=== PATIENT | female | born 1955 | race American Indian/Alaskan Native ===

== ENCOUNTER 2020-11-01 09:19 | Emergency (ER) | payer MEDICAID ==
--- NOTE | 2020-11-01 09:52 | Emergency Department Report ---
ED General Adult HPI - General Chief complaint: Chest Pain Stated complaint: CHEST PAIN Time Seen by Provider: 11/01/20 09:48 Source: EMS Mode of arrival: Stretcher Limitations: Physical Limitation - History of Present Illness Initial comments: Patient is a 65-year-old female who presents emergency department for evaluation of chest pain earlier this morning which has since resolved. Patient denies shortness of breath, denies pleuritic symptoms, denies fever, denies cough. Patient denies calf pain or swelling. Patient denies abdominal pain, denies nausea vomiting or diarrhea. Severity scale (0 -10): 10 - Related Data Home Medications Medication Instructions Recorded Confirmed Last Taken Acetaminophen [Acetaminophen TAB] 325 mg PO Q6HR 12/23/17 12/23/17 Unknown Baclofen 15 mg PO TID 12/23/17 12/23/17 Unknown Docusate Sodium [Colace CAP] 100 mg PO BID PRN 12/23/17 12/23/17 Unknown Famotidine 40 mg PO QHS 12/23/17 12/23/17 Unknown Fluticasone Propionate [Flovent 50 mcg IH DAILY 12/23/17 12/23/17 Unknown Diskus] Loratadine (Nf) [Claritin (Nf)] 10 mg PO DAILY 12/23/17 12/23/17 Unknown Melatonin/Pyridoxine [Melatonin 5 5 mg PO QHS 12/23/17 12/23/17 Unknown mg Tablet] Montelukast [Singulair] 10 mg PO QPM 12/23/17 12/23/17 Unknown Sennosides [Senna Lax] 8.6 mg PO DAILY 12/23/17 12/23/17 Unknown guaiFENesin DM [Guaifenesin Dm 10 ml PO Q6HR 12/23/17 12/23/17 Unknown Syrup] traMADoL [Ultram 50 MG tab] 50 mg PO Q8HR 12/23/17 12/23/17 Unknown Previous Rx's Medication Instructions Recorded Last Taken Type levoFLOXacin [Levaquin TAB] 500 mg PO QDAY #5 tablet 12/27/17 Unknown Rx polyethylene glycoL 3350 [Miralax 17 gm PO QDAY PRN #7 powd.pack 12/27/17 Unknown Rx 3350] Allergies Allergy/AdvReac Type Severity Reaction Status Date / Time No Known Allergies Allergy Unverified 12/23/17 04:18 ED Review of Systems ROS: Stated complaint: CHEST PAIN Other details as noted in HPI Comment: All other systems reviewed and negative ED Past Medical Hx - Past Medical History Hx Hypertension: Yes Additional medical history: cerebral palsy, myelopathy, contracture, dysphagia - Surgical History Additional Surgical History: laminectomy - Social History Smoking Status: Unknown if ever smoked - Medications Home Medications: Home Medications Medication Instructions Recorded Confirmed Last Taken Type Acetaminophen [Acetaminophen TAB] 325 mg PO Q6HR 12/23/17 12/23/17 Unknown History Baclofen 15 mg PO TID 12/23/17 12/23/17 Unknown History Docusate Sodium [Colace CAP] 100 mg PO BID PRN 12/23/17 12/23/17 Unknown History Famotidine 40 mg PO QHS 12/23/17 12/23/17 Unknown History Fluticasone Propionate [Flovent 50 mcg IH DAILY 12/23/17 12/23/17 Unknown History Diskus] Loratadine (Nf) [Claritin (Nf)] 10 mg PO DAILY 12/23/17 12/23/17 Unknown History Melatonin/Pyridoxine [Melatonin 5 5 mg PO QHS 12/23/17 12/23/17 Unknown History mg Tablet] Montelukast [Singulair] 10 mg PO QPM 12/23/17 12/23/17 Unknown History Sennosides [Senna Lax] 8.6 mg PO DAILY 12/23/17 12/23/17 Unknown History guaiFENesin DM [Guaifenesin Dm 10 ml PO Q6HR 12/23/17 12/23/17 Unknown History Syrup] traMADoL [Ultram 50 MG tab] 50 mg PO Q8HR 12/23/17 12/23/17 Unknown History levoFLOXacin [Levaquin TAB] 500 mg PO QDAY #5 tablet 12/27/17 Unknown Rx polyethylene glycoL 3350 [Miralax 17 gm PO QDAY PRN #7 powd.pack 12/27/17 Unknown Rx 3350] ED Physical Exam - General Limitations: Physical Limitation General appearance: alert, in no apparent distress - Head Head exam: Present: atraumatic, normocephalic - Eye Eye exam: Present: normal appearance - ENT ENT exam: Present: mucous membranes moist - Neck Neck exam: Present: normal inspection - Respiratory Respiratory exam: Present: normal lung sounds bilaterally. Absent: respiratory distress - Cardiovascular Cardiovascular Exam: Present: regular rate, normal rhythm - GI/Abdominal GI/Abdominal exam: Present: soft, normal bowel sounds - Extremities Exam Extremities exam: Present: normal inspection, other (Contractures of extremities at baseline) - Back Exam Back exam: Present: normal inspection - Neurological Exam Neurological exam: Present: alert, oriented X3 - Psychiatric Psychiatric exam: Present: normal affect, normal mood - Skin Skin exam: Present: warm, dry, intact, normal color. Absent: rash ED Course Vital Signs 11/01/20 11/01/20 11/01/20 09:35 10:00 10:07 Temperature 98.0 F Pulse Rate 100 H 84 Respiratory 20 18 18 Rate Blood Pressure 212/110 164/84 [Right] O2 Sat by Pulse 97 97 Oximetry - Reevaluation(s) Reevaluation #1: 11/01/20 15:11 IV access established by me to left upper arm using ultrasound guidance secondary to difficult placement from extremity contractures. Immediately prior to CTA chest, IV line extravasates. IV consequently discontinued. Patient refuses any further attempts at IV placement. Patient repeatedly states she did her symptoms this morning were attributable to high blood pressure, symptoms do correlate with blood pressure values in emergency department. Patient has no c linical evidence of DVT, nor PE, has a normal pulse, oxygen saturation 100% on room air with normal respiratory rate, patient has denied chest pain since arrival to emergency department, remains asymptomatic, has no obvious inherent risk factors for DVT and/or PE. Patient discharged. 11/01/20 15:12 ED Medical Decision Making - Lab Data Result diagrams: 11/01/20 10:27 11/01/20 10:27 Labs 11/01/20 11/01/20 11/01/20 10:27 10:27 10:27 WBC 4.9 RBC 4.18 Hgb 12.8 Hct 38.6 MCV 92 MCH 31 MCHC 33 RDW 13.9 Plt Count 267 Lymph % (Auto) 40.8 H [place] % (Auto) 6.7 Eos % (Auto) 3.5 Baso % (Auto) 1.0 Lymph # (Auto) 2.0 [place] # (Auto) 0.3 Eos # (Auto) 0.2 Baso # (Auto) 0.0 Seg Neutrophils % 48.0 Seg Neutrophils # 2.3 D-Dimer 477.58 H Sodium 138 Potassium 3.9 Chloride 103.7 Carbon Dioxide 26 Anion Gap 12 BUN 11 Creatinine 0.6 Estimated GFR > 60 BUN/Creatinine Ratio 18 Glucose 104 H Calcium 9.4 Total Bilirubin 0.30 AST 14 ALT 12 Alkaline Phosphatase 79 Troponin T < 0.010 Total Protein 7.5 Albumin 3.7 L Albumin/Globulin Ratio 1.0 Lipase 62 H 11/01/20 12:57 WBC RBC Hgb Hct MCV MCH MCHC RDW Plt Count Lymph % (Auto) [place] % (Auto) Eos % (Auto) Baso % (Auto) Lymph # (Auto) [place] # (Auto) Eos # (Auto) Baso # (Auto) Seg Neutrophils % Seg Neutrophils # D-Dimer Sodium Potassium Chloride Carbon Dioxide Anion Gap BUN Creatinine Estimated GFR BUN/Creatinine Ratio Glucose Calcium Total Bilirubin AST ALT Alkaline Phosphatase Troponin T < 0.010 Total Protein Albumin Albumin/Globulin Ratio Lipase Vital Signs 11/01/20 11/01/20 11/01/20 09:35 10:00 10:07 Temperature 98.0 F Pulse Rate 100 H 84 Respiratory 20 18 18 Rate Blood Pressure 212/110 164/84 [Right] O2 Sat by Pulse 97 97 Oximetry - EKG Data -: EKG Interpreted by Me (Sinus rhythm at 76, no ST-T changes, normal QRS) - Radiology Data Radiology results: report reviewed Chest x-ray negative per radiology Critical care attestation.: If time is entered above; I have spent that time in minutes in the direct care of this critically ill patient, excluding procedure time. ED Disposition Clinical Impression: Hypertensive disorder, Chest pain Disposition: -01 TO HOME OR SELFCARE Is pt being admited?: No Condition: Stable Instructions: Nonspecific Chest Pain, Adult, Hypertension, Adult, [id number], Hypertension (ED) Additional Instructions: Follow-up with PMD and/or cardiology in 1 to 2 days for reevaluation. Return to the emergency department for worsening symptoms. Referrals: MAHOGANY ALEX MD [Primary Care Provider] - 3-5 Days
--- NOTE | 2020-11-01 10:32 | XRay Report ---
CHEST 1 VIEW 11/01/2020 9:25 AM INDICATION / CLINICAL INFORMATION: chest pain. COMPARISON: None available. FINDINGS: SUPPORT DEVICES: None. HEART / MEDIASTINUM: No significant abnormality. LUNGS / PLEURA: Mild increased interstitial prominence in the lungs may represent chronic interstitia l change. No focal consolidation No pneumothorax. ADDITIONAL FINDINGS: No significant additional findings. IMPRESSION: 1. No acute findings. Signer Name: Jose Reynoso MD Signed: 11/01/2020 10:27 AM Workstation Name: [id number]
[2020-11-01 11:08] LABS: Eosinophils # (Auto) 0.2 K/mm3 (0.0-0.4); Eosinophils % (Auto) 3.5 % (0.0-4.3); Hematocrit 38.6 % (30.3-42.9); Hemoglobin 12.8 gm/dl (10.1-14.3); Lymphocytes % (Auto) 40.8 % (13.4-35.0); Mean Corpuscular HGB Conc 33 % (30-34); Mean Corpuscular Volume 92 fl (79-97); Monocytes # (Auto) 0.3 K/mm3 (0.0-0.8); Monocytes % (Auto) 6.7 % (0.0-7.3); Platelet Count 267 K/mm3 (140-440); Red Blood Count 4.18 M/mm3 (3.65-5.03); Red Cell Distribution Width 13.9 % (13.2-15.2)
--- NOTE | 2020-11-01 11:26 | Electrocardiograph Report ---
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
[2020-11-01 11:32] LABS: Alanine Aminotransferase 12 units/L (7-56); Albumin 3.7 g/dL (3.9-5); Blood Urea Nitrogen 11 mg/dL (7-17); Calcium 9.4 mg/dL (8.4-10.2); Hemolysis Index 3
[2020-11-01 11:47] LABS: BUN/Creatinine Ratio 18
[2020-11-01 15:49] VITALS: BP 195/103
== END 2020-11-01 18:00 | disposition home or self-care (01) ==
LOC: ED 09:19
DX: R07.89 Other chest pain (principal); I10 Essential (primary) hypertension; Z98.890 Other specified postprocedural states; Z79.899 Other long term (current) drug therapy
CPT/HCPCS: 36415; 71045; 80053; 83690; 84484; 85025; 85379; 93005